=== PATIENT | female | born 1950 | race Caucasian/White ===

== ENCOUNTER → 2018-09-03 | Outpatient (CLI) | payer MEDICARE ==
--- NOTE | 2018-09-03 13:36 | PCVCIMAG ---
APPROVED REPORT Doppler Spectral Velocity Analysis PSV / EDVPSV / EDV ECA (R) 75 / 9 cm/sECA (L) 73 / 5 cm/s dICA (R) 71 / 17 cm/sdICA (L) 70 / 21 cm/s Jean Pierre (R) 65 / 19 cm/smICA (L) 51 / 13 cm/s pICA (R) 55 / 13 cm/spICA (L) 50 / 12 cm/s Bulb (R) 57 / 9 cm/sBulb (L) 53 / 12 cm/s dCCA (R) 59 / 14 cm/sdCCA (L) 70 / 17 cm/s mCCA (R) 72 / 16 cm/smCCA (L) 89 / 15 cm/s Vert (R) 46 / 12 cm/sVert (L) 51 / 12 cm/s ICA/CCA 1.20ICA/CCA 1.00 Findings The right carotid bulb has mild plaque. The right proximal internal carotid artery shows no significant stenosis. The right common carotid artery shows no significant stenosis. The right external carotid artery shows no significant stenosis. The left carotid bulb has moderate plaque. The left proximal internal carotid artery shows <40% stenosis. The left common carotid artery shows no significant stenosis. The left external carotid artery shows no significant stenosis. Conclusion 1. Right internal carotid artery plaquing without significant stenosis 2. Left internal carotid artery stenosis (<40%) 3. Antegrade vertebral flow
== END | disposition home or self-care (01) ==
LOC: PCVCIMAG 13:00
PROVIDERS: ATTEND Internal Medicine Cardiovascular Disease
DX: I65.23 Occlusion and stenosis of bilateral carotid arteries (principal); R94.39 Abnormal result of other cardiovascular function study; R53.83 Other fatigue; I10 Essential (primary) hypertension; E11.9 Type 2 diabetes mellitus without complications; E78.5 Hyperlipidemia, unspecified; R09.89 Other specified symptoms and signs involving the circulatory and respiratory systems; K21.9 Gastro-esophageal reflux disease without esophagitis; G47.33 Obstructive sleep apnea (adult) (pediatric); J45.909 Unspecified asthma, uncomplicated; Z79.899 Other long term (current) drug therapy
CPT/HCPCS: 36415; 80061; 93005; 93880; G0463